=== PATIENT | female | born 1955 | race Hispanic/Latino ===

== ENCOUNTER 2023-01-26 15:50 | Emergency (ER) | payer OTHER ==
[~2023-01-26] VITALS: Ht 152.4 cm; Wt 64.0 kg
[2023-01-26] MEDS ORDERED: CEPHALEXIN500 MG PO (22:43)
[2023-01-26 22:58] VITALS: BP 151/70
== END 2023-01-26 23:00 | disposition home or self-care (01) ==
LOC: ED 15:50
DX: I83.022 Varicose veins of left lower extremity with ulcer of calf (principal); L97.228 Non-pressure chronic ulcer of left calf with other specified severity
CPT/HCPCS: 99283; A9270